=== PATIENT | male | born 1970 | race Asian ===

== ENCOUNTER 2017-10-15 10:55 | Inpatient (IN) | payer OTHER ==
[~2017-10-15] VITALS: Ht 170.2 cm; Wt 104.8 kg
[2017-10-15] VITALS (14 sets, daily range): BP systolic 92–147; BP diastolic 52–90
[~2017-10-15 10:55] MED LIST: ceFAZolin 1gm in D5W 55ml IVP SCH; celeBREX 200mg Cap **SURGERY PATIENTS ONLY ORAL SCH; oxyCONTIN 20mg tab ORAL SCH
[2017-10-15] MEDS ORDERED: CENTRUM SILVER1 EAC4 PO (12:06)
--- NOTE | 2017-10-15 12:27 | Anethesia Preoperative Eval ---
Anesthesia Pre-op PMH/ROS General Date of Evaluation: October 15, 2017 Anesthesiologist: Bronson ASA Score: ASA 2 Mallampati Score Class I : Soft palate, uvula, fauces, pillars visible Class II: Soft palate, uvula, fauces visible Class III: Soft palate, base of uvula visible Class IV: Only hard plate visible Mallampati Classification: Class III Surgeon: Mars Diagnosis: Left knee OA Surgical Procedure: Left TKR Anesthesia History: none Family History: no anesthesia problems Allergies: Coded Allergies: No Known Allergies (Unverified , 10/14/17) Medications: see eMAR Past Medical History Cardiovascular: Reports: HTN; Denies: CAD, [place], valve dz, arrhythmia, other Pulmonary: Denies: asthma, COPD, DAYANARA, other Gastrointestinal/Genitourinary: Denies: GERD, CRI, ESRD, other Neurologic/Psychiatric: Denies: dementia, CVA, depression/anxiety, TIA, other Endocrine: Denies: DM, hypothyroidism, steroids, other HEENT: Denies: cataract (L), cataract (R), glaucoma, [place] (L), [place] (R), other Hematology/Immune: Denies: anemia, DVT, bleeding disorder, other Musculoskeletal/Integumentary: Reports: OA; Denies: RA, DJD, DDD, edema, other Other: obesity PSxH Narrative: maxilofacial surgery Anesthesia Pre-op Phys. Exam Physician Exam Last Vital Signs Date Time Temp Pulse Resp B/P (MAP) Pulse Ox O2 Delivery O2 Flow Rate FiO2 10/15/17 12:08 98.1 66 20 133/86 99 Room Air 98.1 Constitutional: NAD Cardiovascular: RRR Respiratory: CTA Airway Exam Mallampati Score: Class III MO: limited Neck: short,obese TMD: <3FB ROM: limited Teeth: missing, broken Anesthesia Pre-op A/P Labs Chemistry Test 10/15/17 11:40 Potassium Level 4.2 MMOL/L (3.5-5.1) Studies Pre-op Studies: EKG - sr Risk Assessment & Plan Assessment: ASA II Plan: SAB with GA Status Change Before Surgery: No Pre-Antibiotics Drug: Ancef 2g Given Within 1 Hr of Incision: Yes EUNICE ROBERTS M.D. October 15, 2017 12:27
[2017-10-15] MEDS ORDERED: oxyCONTIN 20mg tab ORAL SCH ×2 (12:30→21:00)
[2017-10-15] MEDS ORDERED: celeBREX 200mg Cap **SURGERY PATIENTS ONLY ORAL SCH (12:30)
--- NOTE | 2017-10-15 13:03 | Pre-Procedure Note/Attestation ---
Pre-Procedure Note/Attestation Complete Prior to Procedure Planned Procedure: left Procedure Narrative: tka Indications for Procedure Pre-Operative Diagnosis: left knee traumactic oa Attestation I attest that I discussed the nature of the procedure; its benefits; risks and complications; and alternatives (and the risks and benefits of such alternatives ), prior to the procedure, with the patient (or the patient's legal accounts payable representative). I attest that, if there was a reasonable possibility of needing a blood transfusion, the patient (or the patient's legal accounts payable representative) was given the [facility] standardized written summary, pursuant to the Sree Harriman Blood Safety Act ([place] Health and Safety Code # 1645, as amended). I attest that I re-evaluated the patient just prior to the surgery and that there has been no change in the patient's H&P, except as documented below: Twin Crews MD October 15, 2017 13:03
--- NOTE | 2017-10-15 13:04 | Operative Note - PDOC ---
Operative Note Operative Note Pre-op Diagnosis: left knee traumactic oa Procedure: left tka Post-op Diagnosis: same as pre-op plus Operative Findings: consistent w/pre-op dx studies Specimen: none Complications: none Condition: stable Estimated Blood Loss: none Implant(s) used?: Yes Twin Crews MD October 15, 2017 13:04
[2017-10-15] MEDS ORDERED: EPINEPHrine 1mg/1ml Amp ONE (13:15)
[2017-10-15] MEDS ORDERED: Lidocaine 1% 10mg/ml/Epi 0.005mg/ml 30ml vial INJ ONE (13:15)
[2017-10-15] MEDS ORDERED: Morphine Sulfate PF 10 ML ONE ×2 (13:15→13:45)
[2017-10-15] MEDS ORDERED: Ketorolac 30mg Inj ONE (13:15)
[2017-10-15] MEDS ORDERED: oxyCODONE 5mg IR tab ORAL PRN (13:15)
[2017-10-15] MEDS ORDERED: Milk of Magnesia 30ml Ud ORAL PRN (13:15)
[2017-10-15] MEDS ORDERED: Kenalog-40 1ml Vial ONE (13:15)
[2017-10-15] MEDS ORDERED: Bupivacaine 0.25% Inj 30ml INJ ONE ×2 (13:16→15:39)
[2017-10-15] MEDS ORDERED: Propofol 200mg/20ml IV ONE (13:30)
[2017-10-15] MEDS ORDERED: Lidocaine 1% MPF 10mg/ml 5ml ONE (13:30)
[2017-10-15] MEDS ORDERED: Midazolam 2mg/2ml Inj ONE (13:31)
[2017-10-15] MEDS ORDERED: fentaNYL 100 mcg/2 mL IV ONE (13:31)
[2017-10-15] MEDS ORDERED: cloNIDine 1000mcg/10ml inj ONE (13:32)
[2017-10-15] MEDS ORDERED: LR 1000ml 1,000 ML IVLG SCH (13:55)
[2017-10-15] MEDS ORDERED: NeoSporin Gu Irrig 1ml Amp IRRIG ONE (13:58)
[2017-10-15] MEDS ORDERED: Bacitracin 50000 Units Vial ONE (13:58)
[2017-10-15] MEDS ORDERED: Midazolam 2mg/2ml Inj IVP PRN (14:00)
[2017-10-15] MEDS ORDERED: LORazepam Inj 2mg/ml 1ml IV PRN (14:00)
[2017-10-15] MEDS ORDERED: DiphenhydrAMINE 50mg/ml Inj IVP PRN (14:00)
[2017-10-15] MEDS ORDERED: NS Irrig 1000ml IRRIG ONE (14:10)
[2017-10-15] MEDS ORDERED: Duramorph PF 10mg/10ml amp EPIDUR ONE (14:10)
--- NOTE | 2017-10-15 14:45 | Immediate Post-Op Evaluation ---
Immediate Post-Op Evalulation Immediate Post-Op Evalulation Procedure: Left total knee replacement Date of Evaluation: October 15, 2017 Time of Evaluation: 16:18 IV Fluids: 1.4L Blood Products: 0 Estimated Blood Loss: 25 Urinary Output: 0 Blood Pressure Systolic: 93 Blood Pressure Diastolic: 52 Pulse Rate: 66 Respiratory Rate: 17 O2 Sat by Pulse Oximetry: 100 Temperature (Fahrenheit): 97.3 Pain Score (1-10): 0 Nausea: No Vomiting: No Complications 0 Patient Status: awake, reacts, patent, none Hydration Status: adequate Drug: Ancef 2g Given Within 1 Hr of Incision: Yes Time Given: 14:30 EUNICE ROBERTS M.D. October 15, 2017 14:45
[2017-10-15] MEDS ORDERED: Tranexamic Acid 1,000 MG in NS 55 ML IVPB SCH (15:00)
[2017-10-15] MEDS: fentaNYL 100 mcg/2 mL IV PRN ×2 (17:10→17:20)
--- NOTE | 2017-10-15 17:57 | Diagnostic Imaging Report ---
EXAM: XR Left Knee, 3 views CLINICAL HISTORY: Follow up TECHNIQUE: Three views of the left knee. COMPARISON: No relevant prior studies available. FINDINGS: Bones/joints: Left knee arthroplasty. Orthopedic hardware is intact. No fracture. Soft tissues: Soft tissue gas and edema is likely postsurgical. IMPRESSION: Left total knee arthroplasty in near-anatomic alignment.
[2017-10-15] MEDS ORDERED: Acetaminophen 500mg (ES) tab ORAL SCH (18:00)
[2017-10-15] MEDS ORDERED: Docusate 100mg cap ORAL SCH (18:00)
--- NOTE | 2017-10-15 18:39 | 48 Hour Post Anesthesia Eval ---
Post Anesthesia Evaluation Procedure: Left total knee replacement Date of Evaluation: October 15, 2017 Time of Evaluation: 18:38 Blood Pressure Systolic: 122 0: 88 Pulse Rate: 52 Respiratory Rate: 18 Temperature (Fahrenheit): 98 O2 Sat by Pulse Oximetry: 100 Airway: patent Nausea: No Vomiting: No Pain Intensity: 1 Hydration Status: adequate Cardiopulmonary Status: Stable Mental Status/LOC: patient returned to baseline Follow-up Care/Observations: 0 Post-Anesthesia Complications: 0 Follow-up care needed: N/A Robert Ya MD October 15, 2017 18:39
[2017-10-15] MEDS: D5 1/2NS w/KCl 20mEq 1,000 ML IV SCH (21:26)
[2017-10-16] MEDS: ceFAZolin sod 2 GM in D5W 110 ML IV SCH ×2 (00:05→05:48)
[2017-10-16 00:39] VITALS: BP 122/70
--- NOTE | 2017-10-16 02:46 | Operative Note - Dictated ---
DATE OF OPERATION: 10/15/2017 NOTE: POOR AUDIO PREOPERATIVE DIAGNOSIS: Left knee posttraumatic lateral compartment arthrosis. POSTOPERATIVE DIAGNOSIS: Left knee posttraumatic lateral compartment arthrosis. PROCEDURE: Left total knee arthroplasty. SURGEON: Twin Crews M.D. ANESTHESIA: Left femoral adductor block with spinal. INDICATION FOR PROCEDURE: The patient is a pleasant 47-year-old gentleman, who was involved in significant knee injury. He had significant pain in the left knee, mechanical symptoms, and difficulty with activities of daily living. The imaging study showed lateral compartment condral damage. He failed conservative treatment with activity modification, low-impact physical therapy, anti-inflammatories, and ultimately elected to undergo left total knee arthroplasty. The risks, limitations, expectations, and complications of procedure were discussed in detail. All questions addressed. DESCRIPTION OF PROCEDURE: After informed consent was obtained, the patient was brought to the operating room and placed under spinal anesthesia. Garrett catheter was placed. Ancef was administered. Tourniquet was applied to the left proximal thigh. Left leg was prepped and draped in a sterile manner. Time-out was performed. Anterior skin incision was then made. Subvastus arthrotomy was performed. Distal femur was well visualized. At this point, a systematic tour of the knee was performed. On the lateral compartment, there was delamination of the distal aspect of the condyle. There was associated full-thickness chondral lesions in the lateral tibial plateau. There was significant full-thickness chondral flaps that could be elevated very simply with pickups. It was felt that given the intraoperative findings of significant chondral damage in the lateral compartment that the surgery was reasonable and therefore we proceeded with a total knee arthroplasty. Distal femoral cutting block was then placed. Distal femur was resected. A posterior to anterior guide was placed and measured to size 5. A size 5 cutting block was appropriately externally rotated distal femur. The anterior and posterior chamfer cuts were then made. The medial and lateral meniscus was removed. The proximal tibia was well visualized and the proximal tibia was resected. Once proximal tibia resection was completed, with a size 4 base plate and a 9 mm insert, knee was taken through range of motion. It came out to full extension and flexion to 130 degrees. Good stability with full flexion, mid flexion, and 90 degrees. Good tracking of the patella. At this point, the tibial base plate was appropriately externally rotated and keel punch was prepared. Patella was everted measuring 22 mm. Freehand resection was performed. A 31 mm patellar component was selected to measured to 22 mm. At this point, the cement was prepared. Final implants were impacted into place. Excess cement was removed. The skin was closed using #1 Vicryl suture, 2-0 Vicryl suture, and 3-0 Monocryl suture, and Dermabond. The patient was awoken and taken to the recovery room with stable vital signs. ESTIMATED BLOOD LOSS: None. COMPLICATIONS: None. SPECIMENS: Multiple bone cuts. IMPLANTS: Include size 5 femoral component, size 4 tibial base plate, 9 mm tibial insert, and 31 mm patellar component. Twin Crews M.D. DR: GEOFFREY JOB#: [id number] CC: TERE
[2017-10-16 04:48] VITALS: BP 130/69
[2017-10-16 04:53] LABS: HEMOGLOBIN 13.2 G/DL (14.2-18.0); MEAN CORPUSCULAR VOLUME 65 FL (80-99); PLATELET COUNT 200 K/UL (150-450); RED BLOOD COUNT 6.42 M/UL (4.70-6.10); RED CELL DISTRIBUTION WIDTH 13.1 % (11.6-14.8); WHITE BLOOD COUNT 12.2 K/UL (4.8-10.8)
[2017-10-16] MEDS: D5 1/2NS w/KCl 20mEq 1,000 ML IV SCH (08:49)
[2017-10-16] MEDS ORDERED: Acetaminophen 500mg (ES) tab ORAL SCH (09:00)
[2017-10-16] MEDS ORDERED: oxyCONTIN 20mg tab ORAL SCH (09:00)
[2017-10-16] MEDS ORDERED: celeBREX 200mg Cap **SURGERY PATIENTS ONLY ORAL SCH (09:00)
[2017-10-16] MEDS ORDERED: Docusate 100mg cap ORAL SCH (09:00)
[2017-10-16] MEDS ORDERED: oxyCODONE 5mg IR tab ORAL PRN (09:15)
[2017-10-16] MEDS: Docusate 100mg cap ORAL SCH ×2 (14:04→17:16)
[2017-10-16] MEDS: Acetaminophen 500mg (ES) tab ORAL SCH ×2 (14:06→17:20)
[2017-10-16] MEDS: oxyCONTIN 20mg tab ORAL SCH (20:35)
[2017-10-17] MEDS ORDERED: celeBREX 200mg Cap **SURGERY PATIENTS ONLY ORAL SCH (09:00)
[2017-10-17] MEDS: Docusate 100mg cap ORAL SCH ×3 (09:11→17:50)
[2017-10-17] MEDS: oxyCONTIN 20mg tab ORAL SCH (09:12)
[2017-10-17 09:13] LABS: BASOPHILS % (AUTO) 0.4 % (0.0-2.0); EOSINOPHILS % (AUTO) 0.6 % (0.0-3.0); HEMATOCRIT 40.5 % (42.0-52.0); HEMOGLOBIN 12.4 G/DL (14.2-18.0); LYMPHOCYTES % (AUTO) 17.9 % (20.0-45.0); MEAN CORPUSCULAR VOLUME 65 FL (80-99); MONOCYTES % (AUTO) 5.4 % (1.0-10.0); NEUTROPHILS % (AUTO) 75.7 % (45.0-75.0); PLATELET COUNT 187 K/UL (150-450); RED CELL DISTRIBUTION WIDTH 13.3 % (11.6-14.8); WHITE BLOOD COUNT 9.5 K/UL (4.8-10.8)
[2017-10-17] MEDS: Acetaminophen 500mg (ES) tab ORAL SCH ×3 (09:13→17:50)
[2017-10-17] MEDS ORDERED: PERCOCET 10-321 EACH ORAL (18:14)
[2017-10-17] MEDS ORDERED: NAPROXEN250 MG ORAL (18:15)
[2017-10-17] MEDS ORDERED: NEURONTIN100 MG ORAL (18:16)
[2017-10-17] MEDS ORDERED: ASPIRIN325 MG ORAL (18:16)
--- NOTE | 2017-10-19 13:04 | Discharge Summary ---
Discharge Summary Discharge Summary Discharge Summary DATE OF ADMISSION: 10/15/2017 DATE OF DISCHARGE: 10/17/2017 REASON FOR ADMISSION: 47 years male with history of osteoarthritis ,m hypertension had significant left knee injury. He reported significant pain in the left knee and difficulties with activities of daily living. Imaging study revealed lateral compartment chondral damage. Patient failed conservative treatment with activity modifications, low impact physical therapy, anti-inflammatory medications and ultimately elected to undergo left total knee arthropathy. Risks and benefits of procedure were discussed in detail with the patient, and patient opted for surgery. Patient admitted for elective surgery. HOSPITAL COURSE: Patient admitted for elective surgery. Patient subsequently undergone on left total knee arthroplasty. Course of recovery was uneventful. Pain management was addressed, and pain was controlled. Patient was working with physical and occupational therapists. Fall precautions were maintained. Per physical therapy, the patient was safe with ambulation. Bowel regimen instituted. Supportive care provided. Patient tolerated diet. Patient voided freely. Patient was stable for discharge home with outpatient follow-up with surgeon as advised. FINAL DIAGNOSES: Left knee posttraumatic lateral compartment arthrosis Status post left total knee arthroplasty 10/15/2017 DISCHARGE MEDICATIONS: See Medication Reconciliation list. DISCHARGE INSTRUCTIONS: Patient was discharged home. Follow-up with a surgeon as outpatient as advised by surgeon. I have been assigned to dictate discharge summary for this account. I was not involved in the patient's management. Tana Rose NP October 19, 2017 13:04
== END 2017-10-17 18:40 | disposition home or self-care (01) | DRG 470 ==
LOC: SDSOVERFLO 10:55 → 3E 17:53
PROC: 0SRD0J9 Replacement of Left Knee Joint with Synthetic Substitute, Cemented, Open Approach (ICD-10-PCS; principal; 2017-10-15 13:45)
DX: M17.32 Unilateral post-traumatic osteoarthritis, left knee (principal); I10 Essential (primary) hypertension
CPT/HCPCS: 36415; 84132; 85007; 85025; 86850; 86900; 86901; 87081; J2250

== ENCOUNTER 2017-12-30 08:54 | Day surgery (SDC) | payer OTHER ==
[~2017-12-30] VITALS: Ht 170.2 cm; Wt 106.6 kg
[2017-12-30] VITALS (10 sets, daily range): BP systolic 125–154; BP diastolic 76–89
--- NOTE | 2017-12-30 07:07 | Pre-Procedure Note/Attestation ---
Pre-Procedure Note/Attestation Complete Prior to Procedure Planned Procedure: right Procedure Narrative: shoulder arthroscopy, sad Indications for Procedure Pre-Operative Diagnosis: right shoulder internal derangment Attestation I attest that I discussed the nature of the procedure; its benefits; risks and complications; and alternatives (and the risks and benefits of such alternatives ), prior to the procedure, with the patient (or the patient's legal medical device sales representative). I attest that, if there was a reasonable possibility of needing a blood transfusion, the patient (or the patient's legal medical device sales representative) was given the [facility] standardized written summary, pursuant to the Sree Hackett Blood Safety Act ([place] Health and Safety Code # 1645, as amended). I attest that I re-evaluated the patient just prior to the surgery and that there has been no change in the patient's H&P, except as documented below: Twin Crews MD Dec 30, 2017 07:07
--- NOTE | 2017-12-30 07:08 | Operative Note - PDOC ---
Operative Note Operative Note Pre-op Diagnosis: right shoulder internal derangment Procedure: see op report Post-op Diagnosis: same as pre-op plus Operative Findings: consistent w/pre-op dx studies Anesthesia: regional Specimen: none Complications: none Condition: stable Estimated Blood Loss: none Implant(s) used?: No Twin Crews MD Dec 30, 2017 07:08
[~2017-12-30 08:54] MED LIST changes: +ASPIRIN325 MG ORAL; +CENTRUM SILVER1 EAC4 PO; +D5 1/2NS 1,000 ML IV SCH; +HYDROmorphone 1mg/ml Carpuject SUBQ PRN; +NAPROXEN250 MG ORAL; +NEURONTIN100 MG ORAL; +Norco 5mg/325mg tab ORAL PRN; +PERCOCET 10-321 EACH ORAL; +Tylenol #3 tab (300mg/30mg) ORAL PRN; -ceFAZolin 1gm in D5W 55ml IVP SCH; +ceFAZolin 1gm in D5W 55ml IVPB ONE; +celeBREX 200mg Cap **SURGERY PATIENTS ONLY ORAL ONE; -celeBREX 200mg Cap **SURGERY PATIENTS ONLY ORAL SCH; +oxyCONTIN 20mg tab ORAL ONE; -oxyCONTIN 20mg tab ORAL SCH
[2017-12-30] MEDS ORDERED: BYSTOLIC2.5 MG ORAL (09:45)
[2017-12-30] MEDS ORDERED: oxyCONTIN 20mg tab ORAL ONE (09:49)
[2017-12-30] MEDS ORDERED: celeBREX 200mg Cap **SURGERY PATIENTS ONLY ORAL ONE (09:49)
[2017-12-30] MEDS ORDERED: fentaNYL 100 mcg/2 mL IV ONE (11:02)
[2017-12-30] MEDS ORDERED: Midazolam 2mg/2ml Inj ONE (11:02)
[2017-12-30] MEDS ORDERED: Propofol 200mg/20ml IV ONE (11:05)
[2017-12-30] MEDS ORDERED: Ketorolac 30mg Inj ONE (11:05)
[2017-12-30] MEDS ORDERED: Lidocaine 1% MPF 10mg/ml 5ml ONE ×2 (11:06→12:05)
[2017-12-30] MEDS ORDERED: EPINEPHrine 1mg/1ml Amp ONE (11:30)
[2017-12-30] MEDS ORDERED: Bupivacaine 0.25% Inj 30ml INJ ONE (11:30)
[2017-12-30] MEDS ORDERED: Zemuron 50mg/5ml Inj IV ONE (11:46)
[2017-12-30] MEDS ORDERED: Succinylcholine 20mg/ml 10ml vial ONE (11:46)
[2017-12-30] MEDS ORDERED: Ropivacaine 5mg/ml Vial 30ml INJ ONE (11:48)
[2017-12-30] MEDS ORDERED: LR 1000ml ONE (12:30)
[2017-12-30] MEDS ORDERED: NS Irrig 4000ml IRRIG ONE (12:30)
[2017-12-30] MEDS ORDERED: Neostigmine 1mg/ml 10ml Inj ONE (13:12)
[2017-12-30] MEDS ORDERED: Glycopyrrolate 0.2mg/ml 1ml Vial ONE (13:12)
[2017-12-30] MEDS ORDERED: LR 1000ml 1,000 ML IVLG SCH (13:21)
--- NOTE | 2017-12-30 13:21 | Anethesia Preoperative Eval ---
Anesthesia Pre-op PMH/ROS General Date of Evaluation: Dec 30, 2017 Time of Evaluation: 12:10 Anesthesiologist: Saad ASA Score: ASA 2 Mallampati Score Class I : Soft palate, uvula, fauces, pillars visible Class II: Soft palate, uvula, fauces visible Class III: Soft palate, base of uvula visible Class IV: Only hard plate visible Mallampati Classification: Class III Surgeon: Mars Diagnosis: R shoulder pain Surgical Procedure: R shoulder scope Anesthesia History: none Family History: no anesthesia problems Allergies: Coded Allergies: No Known Allergies (Unverified , 10/14/17) Medications: see eMAR Past Medical History Cardiovascular: Reports: HTN; Denies: CAD, [place], valve dz, arrhythmia, other Pulmonary: Reports: DAYAN[place]; Denies: asthma, COPD, other Gastrointestinal/Genitourinary: Reports: GERD; Denies: CRI, ESRD, other Neurologic/Psychiatric: Denies: dementia, CVA, depression/anxiety, TIA, other Endocrine: Denies: DM, hypothyroidism, steroids, other HEENT: Denies: cataract (L), cataract (R), glaucoma, [place] (L), [place] (R), other Hematology/Immune: Denies: anemia, DVT, bleeding disorder, other Musculoskeletal/Integumentary: Denies: OA, RA, DJD, DDD, edema, other Other: obesity PMH Narrative: as above PSxH Narrative: L knee arthroplasty Anesthesia Pre-op Phys. Exam Physician Exam Last Vital Signs Date Time Temp Pulse Resp B/P (MAP) Pulse Ox O2 Delivery O2 Flow Rate FiO2 12/30/17 09:49 Room Air 12/30/17 09:31 97.9 61 18 135/89 (104) 99 97.9 Neurologic: CN 2-12 intact Cardiovascular: RRR, no M/R/G Respiratory: CTA Gastrointestinal: other - obesity Airway Exam Mallampati Score: Class III MO: full Neck: short ROM: full Teeth: missing, broken Dentures: no upper, no lower Anesthesia Pre-op A/P Labs see chart Studies Pre-op Studies: EKG - SR Risk Assessment & Plan Assessment: ASA 2 Plan: GA with ETT, R brachial plexus block Status Change Before Surgery: No Pre-Antibiotics Drug: Ancef 2gr. Given Within 1 Hr of Incision: Yes Time Given: 13:12 Ezra Nash MD Dec 30, 2017 13:21
[2017-12-30] MEDS ORDERED: fentaNYL 100 mcg/2 mL IV PRN (13:30)
[2017-12-30] MEDS ORDERED: Ketorolac 30mg Inj IV PRN (13:30)
[2017-12-30] MEDS ORDERED: Meperidine 50mg/ml Inj(FOR RIGORS ONLY) IV PRN (13:30)
[2017-12-30] MEDS ORDERED: DiphenhydrAMINE 50mg/ml Inj IVP PRN (13:30)
--- NOTE | 2017-12-30 14:29 | Immediate Post-Op Evaluation ---
Immediate Post-Op Evalulation Immediate Post-Op Evalulation Procedure: R shoulder arthroscopy subacromion decompression Date of Evaluation: Dec 30, 2017 Time of Evaluation: 13:45 IV Fluids: 800 Blood Products: none Estimated Blood Loss: min Urinary Output: none Blood Pressure Systolic: 136 Blood Pressure Diastolic: 74 Pulse Rate: 68 Respiratory Rate: 20 O2 Sat by Pulse Oximetry: 98 Temperature (Fahrenheit): 97.4 Pain Score (1-10): 2 Nausea: No Vomiting: No Complications none Patient Status: reacts, patent, extubated, none Hydration Status: adequate Ezra Nash MD Dec 30, 2017 14:29
--- NOTE | 2017-12-30 15:38 | 48 Hour Post Anesthesia Eval ---
Post Anesthesia Evaluation Procedure: R shoulder arthroscopy subacromion decompression Date of Evaluation: Dec 30, 2017 Time of Evaluation: 15:36 Blood Pressure Systolic: 136 0: 78 Pulse Rate: 64 Respiratory Rate: 20 Temperature (Fahrenheit): 97.6 O2 Sat by Pulse Oximetry: 98 Airway: patent Nausea: No Vomiting: No Hydration Status: adequate Cardiopulmonary Status: stable Mental Status/LOC: patient returned to baseline Follow-up Care/Observations: n/a Post-Anesthesia Complications: none Follow-up care needed: ready to discharge Ezra Nash MD Dec 30, 2017 15:38
--- NOTE | 2017-12-31 09:45 | Operative Note - Dictated ---
DATE OF OPERATION: 12/30/2017 PREOPERATIVE DIAGNOSES: 1. Right shoulder SLAP tear. 2. Right shoulder impingement syndrome. POSTOPERATIVE DIAGNOSES: 1. Right shoulder tear of the long head of biceps tendon. 2. Right shoulder impingement syndrome. 3. Partial articular-sided rotator cuff tear. PROCEDURES: 1. Right shoulder diagnostic arthroscopy with extensive intra-articular debridement. 2. Right shoulder debridement/repair of articular-sided rotator cuff tear. 3. Right shoulder SLAP tear debridement. 4. Subacromial decompression, bursectomy, acromioplasty. SURGEON: Twin Crews M.D. ANESTHESIA: Interscalene with general. INDICATION FOR PROCEDURE: The patient is a pleasant gentleman, who has had a significant right shoulder pain. He had continued issues with activities of daily living. He failed conservative treatment. He elected to undergo right shoulder diagnostic arthroscopy, possible SLAP repair with concurrent subacromial decompression and bursectomy. Risks, limitations, expectations, and complications of the procedure were discussed in detail. All questions were addressed. DESCRIPTION OF PROCEDURE: After informed consent was obtained, the patient was brought to the operating room. We placed the patient under interscalene anesthesia. The patient was then carefully placed in the beach-chair position. Right shoulder was prepped and draped in a sterile manner. Time-out was performed. Inferolateral stab incision was then made. Trocar was introduced into the glenohumeral joint. An anteromedial working portal was established. Diagnostic arthroscopy of the shoulder was performed. The long head of the biceps tendon ruptured with the stump of the tendon along the superior labrum. Shaver was then placed, debrided this tissue down to stable rim of tissue. The undersurface of the rotator cuff had a partial rotator cuff tear and this was debrided down to stable rim of tissue. Once that was done, the camera was repositioned in the subacromial space. Complete bursectomy was performed. Undersurface of the acromion was identified. Acromioplasty was started from lateral to medial and completed posterior to anterior. Bursectomy was completed. The instruments were removed. Portal sites were closed with 3-0 Monocryl sutures. Steri-Strips and a sterile dressing were applied. The patient was awoken and taken to recovery room with stable vital signs. ESTIMATED BLOOD LOSS: Minimal. COMPLICATIONS: None. SPECIMENS: None. IMPLANTS: None. Twin Crews M.D. DR: Maria Victoria JOB#: [id number] CC: TERE
== END 2017-12-30 15:20 | disposition home or self-care (01) ==
LOC: SUR 08:54
DX: M75.41 Impingement syndrome of right shoulder (principal); M75.111 Incomplete rotator cuff tear or rupture of right shoulder, not specified as traumatic; S46.111A Strain of muscle, fascia and tendon of long head of biceps, right arm, initial encounter; X58.XXXA Exposure to other specified factors, initial encounter; Y93.9 Activity, unspecified; Y92.9 Unspecified place or not applicable; I10 Essential (primary) hypertension; G47.33 Obstructive sleep apnea (adult) (pediatric); K21.9 Gastro-esophageal reflux disease without esophagitis
CPT/HCPCS: 29823; J0171; J0330; J0690; J1885; J2250; J2704; J2710; J2795; J3010; J3490; J7120; 94003; 94150